=== PATIENT | female | born 1940 | race African-American/Black ===

== ENCOUNTER 2023-01-06 17:03 | Inpatient (IN) | payer MEDICARE, OTHER ==
[2023-01-06] MEDS ORDERED: LevoFLOXacin 750 mg/D5W 150 ml Premix Bag ONE (19:15)
[2023-01-06 19:34] LABS: #Basophils 0.1 10x3/uL (0.0-0.2); #Eosinphils 0.4 10x3/uL (0.0-0.5); #Monocytes 0.8 10x3/uL (0.0-1.1); #Neutrophils 3.7 10x3/uL (1.5-8.4); %Basophils 0.9 % (0.0-2.0); %Eosinophils 5.5 % (0.0-6.0); %Lymphocytes 35.1 % (18.0-47.0); %Monocytes 9.8 % (0.0-10.0); %Neutrophils 48.3 % (40.0-75.0); Hematocrit 31.6 % (34.9-44.5); Hemoglobin 9.3 g/dL (12.0-15.5); Mean Corpuscular HGB CONC 29.4 g/dL (32.0-36.0); Mean Corpuscular Hemoglobin 27.8 pg (27.0-33.0); Mean Corpuscular Volume 94.6 fl (81.6-98.3); Mean Platelet Volume 12.1 fl (7.4-10.4); Platelet Count 211 10x3/uL (150-450); RBC Distribution Width 14.4 % (11.5-14.5); Red Blood Cell (RBC) Count 3.34 10x6/uL (3.90-5.03); White Blood Cell (WBC) Count 7.6 10x3/uL (3.5-10.5)
[2023-01-06 19:40] LABS: ALT (SGPT) Less than 7 U/L (8-55); AST (SGOT) 16 U/L (5-34); Albumin 3.5 g/dL (3.4-4.8); Alkaline Phosphatase 51 U/L (40-110); Anion Gap 15 mmol/L (10-20); BUN (Urea Nitrogen) 13 mg/dL (9.8-20.1); Bilirubin, Total 0.4 mg/dL (0.2-1.2); Calc. Creatinine Clearance 0 mL/min (70-130); Calcium 9.8 mg/dL (7.8-10.44); Carbon Dioxide 25 mmol/L (23-31); Chloride 104 mmol/L (98-107); Estimated GFR 60; Glucose 93 mg/dL (83-110); Potassium 4.1 mmol/L (3.5-5.1); Protein, Total 6.5 g/dL (5.8-8.1)
[2023-01-06 19:46] LABS: Sodium 140 mmol/L (136-145); Troponin I 0.034 ng/mL (< 0.028)
[2023-01-06] MEDS ORDERED: Cefepime 2 GM VIAL ONE (20:50)
[2023-01-06] MEDS ORDERED: Vancomycin 1 GM VIAL ONE (21:22)
[2023-01-06] MEDS ORDERED: Sodium Chloride 0.9% 1,000 ML IV SCH (22:00)
[2023-01-06] MEDS ORDERED: Ipratropium/Albuterol 3 ML NEB NEB PRN (22:02)
[2023-01-06 22:51] LABS: Magnesium 1.8 mg/dL (1.6-2.6)
[2023-01-06 23:27] VITALS: BMI 27.1
[2023-01-07 00:48] LABS: Troponin I 0.023 ng/mL (< 0.028)
[2023-01-07] MEDS ORDERED: QUEtiapine 25 MG TAB PO SCH (01:45)
[2023-01-07 04:34] LABS: Anion Gap 16 mmol/L (10-20); BUN (Urea Nitrogen) 13 mg/dL (9.8-20.1); Calc. Creatinine Clearance 51 mL/min (70-130); Calcium 9.7 mg/dL (7.8-10.44); Carbon Dioxide 24 mmol/L (23-31); Chloride 106 mmol/L (98-107); Estimated GFR 62; Glucose 82 mg/dL (83-110); Potassium 4.3 mmol/L (3.5-5.1); Sodium 142 mmol/L (136-145)
[2023-01-07 04:37] LABS: Troponin I 0.028 ng/mL (< 0.028)
[2023-01-07 04:51] LABS: #Basophils 0.1 10x3/uL (0.0-0.2); #Eosinphils 0.4 10x3/uL (0.0-0.5); #Monocytes 0.8 10x3/uL (0.0-1.1); #Neutrophils 2.9 10x3/uL (1.5-8.4); %Basophils 0.8 % (0.0-2.0); %Eosinophils 5.5 % (0.0-6.0); %Monocytes 12.4 % (0.0-10.0); %Neutrophils 45.5 % (40.0-75.0); Hematocrit 30.6 % (34.9-44.5); Hemoglobin 9.1 g/dL (12.0-15.5); Mean Corpuscular HGB CONC 29.7 g/dL (32.0-36.0); Mean Corpuscular Hemoglobin 28.3 pg (27.0-33.0); Mean Corpuscular Volume 95.3 fl (81.6-98.3); Mean Platelet Volume 12.6 fl (7.4-10.4); Platelet Count 174 10x3/uL (150-450); RBC Distribution Width 14.5 % (11.5-14.5); Red Blood Cell (RBC) Count 3.21 10x6/uL (3.90-5.03); White Blood Cell (WBC) Count 6.4 10x3/uL (3.5-10.5)
[2023-01-07] MEDS ORDERED: Magnesium Oxide 400 MG TAB PO SCH (05:00)
[2023-01-07] MEDS: cefTRIAXone\\ROCEPHIN 1 GM in Sodium Chloride 0.9% 100 ML IVPB SCH (05:11)
[2023-01-07] MEDS: Aspirin 81 mg Enteric Coated Tablet PO SCH (08:16)
[2023-01-07] MEDS: Sacubitril 24MG/Valsartan 26 MG TAB PO SCH ×2 (08:16→20:41)
[2023-01-07] MEDS: Furosemide 40 MG TAB PO SCH (08:16)
[2023-01-07 13:01] LABS: Legionella Urinary Ag Negative (Negative); Strep pneumo Urine Ag NEGATIVE (NEGATIVE)
[2023-01-07] MEDS: Acetaminophen 325 MG TAB PO PRN (16:16)
[2023-01-07] MEDS ORDERED: Azithromycin 500 MG in Sodium Chloride 0.9% 250 ML 250 ML IVPB SCH (20:00)
[2023-01-07] MEDS: Ondansetron PF 4 MG/2 ML Vial IVP PRN (20:39)
[2023-01-07] MEDS: Atorvastatin Calcium 20 MG TAB PO SCH (20:41)
[2023-01-08 04:01] LABS: #Basophils 0.1 10x3/uL (0.0-0.2); #Eosinphils 0.5 10x3/uL (0.0-0.5); #Monocytes 0.8 10x3/uL (0.0-1.1); #Neutrophils 3.3 10x3/uL (1.5-8.4); %Basophils 0.9 % (0.0-2.0); %Eosinophils 7.7 % (0.0-6.0); %Lymphocytes 29.7 % (18.0-47.0); %Monocytes 11.4 % (0.0-10.0); %Neutrophils 49.7 % (40.0-75.0); Hematocrit 30.4 % (34.9-44.5); Hemoglobin 8.8 g/dL (12.0-15.5); Mean Corpuscular HGB CONC 28.9 g/dL (32.0-36.0); Mean Corpuscular Hemoglobin 27.6 pg (27.0-33.0); Mean Corpuscular Volume 95.3 fl (81.6-98.3); Mean Platelet Volume 11.6 fl (7.4-10.4); Platelet Count 177 10x3/uL (150-450); RBC Distribution Width 14.1 % (11.5-14.5); Red Blood Cell (RBC) Count 3.19 10x6/uL (3.90-5.03); White Blood Cell (WBC) Count 6.7 10x3/uL (3.5-10.5)
[2023-01-08 04:10] LABS: ALT (SGPT) Less than 7 U/L (8-55); AST (SGOT) 13 U/L (5-34); Albumin 3.2 g/dL (3.4-4.8); Alkaline Phosphatase 50 U/L (40-110); Anion Gap 13 mmol/L (10-20); BUN (Urea Nitrogen) 10 mg/dL (9.8-20.1); Bilirubin, Total 0.4 mg/dL (0.2-1.2); Calc. Creatinine Clearance 55 mL/min (70-130); Calcium 9.4 mg/dL (7.8-10.44); Carbon Dioxide 24 mmol/L (23-31); Chloride 107 mmol/L (98-107); Estimated GFR 67; Globulin 2.6 g/dL (2.4-3.5); Glucose 90 mg/dL (83-110); Potassium 4.1 mmol/L (3.5-5.1); Protein, Total 5.8 g/dL (5.8-8.1); Sodium 140 mmol/L (136-145)
[2023-01-08] MEDS: cefTRIAXone\\ROCEPHIN 1 GM in Sodium Chloride 0.9% 100 ML IVPB SCH (06:24)
[2023-01-08] MEDS: Furosemide 40 MG TAB PO SCH (08:52)
[2023-01-08] MEDS: Sacubitril 24MG/Valsartan 26 MG TAB PO SCH ×2 (08:52→22:58)
[2023-01-08] MEDS: Acetaminophen 325 MG TAB PO PRN (08:53)
[2023-01-08] MEDS: Ondansetron PF 4 MG/2 ML Vial IVP PRN (08:53)
[2023-01-08] MEDS: Aspirin 81 mg Enteric Coated Tablet PO SCH (08:53)
[2023-01-08] MEDS: Doxycycline 100 MG CAP PO SCH ×2 (09:09→22:58)
[2023-01-08] MEDS: Atorvastatin Calcium 20 MG TAB PO SCH (22:58)
[2023-01-09] MEDS: cefTRIAXone\\ROCEPHIN 1 GM in Sodium Chloride 0.9% 100 ML IVPB SCH (06:07)
[2023-01-09] MEDS: Furosemide 40 MG TAB PO SCH (06:55)
[2023-01-09] MEDS: Doxycycline 100 MG CAP PO SCH (09:28)
[2023-01-09] MEDS: Aspirin 81 mg Enteric Coated Tablet PO SCH (09:28)
[2023-01-09] MEDS: Sacubitril 24MG/Valsartan 26 MG TAB PO SCH (09:28)
[2023-01-09] MEDS: Acetaminophen 325 MG TAB PO PRN (14:34)
[2023-01-09 17:20] VITALS: BP 140/68; TEMP 97.5
== END 2023-01-09 18:25 | disposition home or self-care (01) | DRG 177 ==
LOC: CSHERS 17:03 → CSHTELE 22:22 → INTOOBSV 22:22 → CSHTELE 22:25 → OBSVTOIN 01-08 08:56
PROVIDERS: ADMIT Family Medicine; ATTEND Hospitalist
DX: J15.69 Pneumonia due to other Gram-negative bacteria (principal); J96.20 Acute and chronic respiratory failure, unspecified whether with hypoxia or hypercapnia; I50.22 Chronic systolic (congestive) heart failure; J44.0 Chronic obstructive pulmonary disease with (acute) lower respiratory infection; I25.10 Atherosclerotic heart disease of native coronary artery without angina pectoris; I11.0 Hypertensive heart disease with heart failure; E78.5 Hyperlipidemia, unspecified; R79.89 Other specified abnormal findings of blood chemistry; D63.8 Anemia in other chronic diseases classified elsewhere; K52.9 Noninfective gastroenteritis and colitis, unspecified; Z85.3 Personal history of malignant neoplasm of breast; Z88.1 Allergy status to other antibiotic agents; Z79.82 Long term (current) use of aspirin; Z79.51 Long term (current) use of inhaled steroids; Z79.899 Other long term (current) drug therapy; Z95.0 Presence of cardiac pacemaker; Z95.1 Presence of aortocoronary bypass graft; Z98.890 Other specified postprocedural states
CPT/HCPCS: 36415; 71045; 80048; 80053; 83605; 83735; 83880; 84145; 84484; 85025; 87040; 87449; 87899; 93005; 93010; 94760; 96372; 96375; 96376; 97139; G0378; J0456; J0692; J0696; J1650; J1956; J2405; J3370; J3490; J7050

== ENCOUNTER 2023-01-13 17:47 | Emergency (ER) | payer MEDICARE ==
[2023-01-13] MEDS ORDERED: methylPREDNISolone Sod Succ/PF 125 MG/2 ML VIAL ONE (19:03)
[2023-01-13 19:33] LABS: #Basophils 0.1 10x3/uL (0.0-0.2); #Eosinphils 0.3 10x3/uL (0.0-0.5); #Monocytes 0.6 10x3/uL (0.0-1.1); #Neutrophils 4.3 10x3/uL (1.5-8.4); %Basophils 0.8 % (0.0-2.0); %Lymphocytes 29.4 % (18.0-47.0); %Monocytes 8.3 % (0.0-10.0); Hematocrit 32.5 % (34.9-44.5); Hemoglobin 9.9 g/dL (12.0-15.5); Mean Corpuscular HGB CONC 30.5 g/dL (32.0-36.0); Mean Corpuscular Hemoglobin 28.5 pg (27.0-33.0); Mean Corpuscular Volume 93.7 fl (81.6-98.3); Mean Platelet Volume 11.6 fl (7.4-10.4); Platelet Count 234 10x3/uL (150-450); RBC Distribution Width 14.2 % (11.5-14.5); Red Blood Cell (RBC) Count 3.47 10x6/uL (3.90-5.03); White Blood Cell (WBC) Count 7.6 10x3/uL (3.5-10.5)
[2023-01-13 19:45] LABS: ALT (SGPT) Less than 7 U/L (8-55); AST (SGOT) 19 U/L (5-34); Albumin 3.6 g/dL (3.4-4.8); Alkaline Phosphatase 50 U/L (40-110); Anion Gap 17 mmol/L (10-20); BUN (Urea Nitrogen) 22 mg/dL (9.8-20.1); Bilirubin, Total 0.4 mg/dL (0.2-1.2); Calc. Creatinine Clearance 0 mL/min (70-130); Calcium 9.8 mg/dL (7.8-10.44); Carbon Dioxide 27 mmol/L (23-31); Chloride 105 mmol/L (98-107); Estimated GFR 59; Globulin 3.2 g/dL (2.4-3.5); Glucose 97 mg/dL (83-110); Potassium 4.2 mmol/L (3.5-5.1); Protein, Total 6.8 g/dL (5.8-8.1); Sodium 145 mmol/L (136-145)
[2023-01-13 19:51] LABS: Troponin I 0.016 ng/mL (< 0.028)
== END 2023-01-14 00:28 | disposition home or self-care (01) ==
LOC: CSHERS 17:47
DX: J44.1 Chronic obstructive pulmonary disease with (acute) exacerbation (principal); I11.0 Hypertensive heart disease with heart failure; I50.9 Heart failure, unspecified
CPT/HCPCS: 71045; 80053; 83880; 84484; 85025; 93005; 96374; J2930

== ENCOUNTER 2023-01-21 10:46 | Emergency (ER) | payer MEDICARE ==
[2023-01-21 11:21] LABS: #Eosinphils 0.1 10x3/uL (0.0-0.5); #Monocytes 0.8 10x3/uL (0.0-1.1); #Neutrophils 7.7 10x3/uL (1.5-8.4); %Basophils 0.2 % (0.0-2.0); %Eosinophils 0.5 % (0.0-6.0); %Lymphocytes 20.4 % (18.0-47.0); %Monocytes 7.6 % (0.0-10.0); %Neutrophils 69.8 % (40.0-75.0); Hematocrit 30.4 % (34.9-44.5); Hemoglobin 9.3 g/dL (12.0-15.5); Mean Corpuscular HGB CONC 30.6 g/dL (32.0-36.0); Mean Corpuscular Hemoglobin 28.2 pg (27.0-33.0); Mean Corpuscular Volume 92.1 fl (81.6-98.3); Mean Platelet Volume 11.1 fl (7.4-10.4); Platelet Count 249 10x3/uL (150-450); RBC Distribution Width 14.5 % (11.5-14.5)
[2023-01-21] MEDS ORDERED: HYDROcodone/Acetaminophen 5/325 mg Tablet ONE ×2 (11:28→16:57)
[2023-01-21] MEDS ORDERED: Ipratropium Bromide 2.5 ml Neb ONE (11:30)
[2023-01-21 11:36] LABS: ALT (SGPT) Less than 7 U/L (8-55); AST (SGOT) 11 U/L (5-34); Albumin 3.6 g/dL (3.4-4.8); Alkaline Phosphatase 52 U/L (40-110); Anion Gap 14 mmol/L (10-20); BUN (Urea Nitrogen) 18 mg/dL (9.8-20.1); Bilirubin, Total 0.4 mg/dL (0.2-1.2); Calc. Creatinine Clearance 0 mL/min (70-130); Calcium 9.1 mg/dL (7.8-10.44); Carbon Dioxide 26 mmol/L (23-31); Chloride 110 mmol/L (98-107); Estimated GFR 68; Globulin 2.2 g/dL (2.4-3.5); Glucose 86 mg/dL (83-110); Potassium 3.9 mmol/L (3.5-5.1); Protein, Total 5.8 g/dL (5.8-8.1); Sodium 146 mmol/L (136-145)
[2023-01-21 11:42] LABS: Troponin I 0.016 ng/mL (< 0.028)
== END 2023-01-21 12:52 | disposition home or self-care (01) ==
LOC: CSHERS 10:46
DX: J44.1 Chronic obstructive pulmonary disease with (acute) exacerbation (principal); I11.0 Hypertensive heart disease with heart failure; I50.9 Heart failure, unspecified
CPT/HCPCS: 36415; 71045; 80053; 83880; 84484; 85025; 93005; J7611